=== PATIENT | female | born 1955 | race Caucasian/White ===

== ENCOUNTER 2016-11-19 01:11 | Inpatient (IN) ==
[2016-11-19] MEDS ORDERED: ASPIRIN PO STA (01:16)
[2016-11-19 01:30] LABS: MANUAL DIFF NEEDED? NO
[2016-11-19 01:35] LABS: BASO% 0.2 % (0.0-0.8); EOS# 0.03 X1000 (0.0-0.7); EOS% 0.3 % (0.0-10.0); HEMATOCRIT 43.3 % (37.0-47.0); HEMOGLOBIN 15.3 g/dL (12.0-16.0); IMM GRAN# 0.02 X1000 (0.0-0.04); IMM GRAN% 0.2 % (0.0-0.5); LYMPH# 1.51 X1000 (1.2-3.4); LYMPH% 17.4 % (20.5-51.1); MCH 29.3 PG (27-31); MCHC 35.3 g/dL (33-37); MONO# 0.41 X1000 (0.11-0.59); MONO% 4.7 % (1.7-9.3); MPV 9.6 FL (7.4-10.4); NEUT% 77.2 % (42.2-75.2); PLT 71 X1000 (130-400); RBC 5.22 XMIL (4.2-5.4)
[2016-11-19] MEDS ORDERED: NITROGLYCERIN ONE (01:35)
[2016-11-19] MEDS ORDERED: NITROGLYCERIN SL ONE (01:39)
[2016-11-19] MEDS ORDERED: ZOFRAN IV ONE (01:59)
[2016-11-19 02:03] LABS: AGAP 17; ALBUMIN 4.4 g/dL (3.5-5.0); ALKALINE PHOSPHATASE 87 U/L (32-104); BUN 8 mg/dL (8-22); CALCIUM 9.5 mg/dL (8.8-10.2); CHLORIDE 94 mmol/L (98-107); CK PROFILE 55 U/L (24-173); COSMO 273; GOT 1626 U/L (10-30); GPT 1506 U/L (10-36); MAGNESIUM 1.9 mg/dL (1.5-2.7); POTASSIUM 3.2 mmol/L (3.5-5.1); SODIUM 137 mmol/L (136-145); TCO2 26 mmol/L (25-35); TOTAL BILIRUBIN 2.43 mg/dL (0.20-1.00); TOTAL PROTEIN 7.5 g/dL (6.3-8.3)
[2016-11-19 02:11] LABS: INR 1.6; PROTIME 17.3 Seconds (9.2-11.7); PTT 32.1 Seconds (22.0-36.0)
--- NOTE | 2016-11-19 03:13 | ED EKG INTERP ---
This chart was entered by Sushma Flores Scribe, acting as scribe for William Venegas MD. EKG Interpretation - EKG Time of EKG reading by physician:: 01:11 EKG Read and Signed by:: William Venegas EKG Interpretation (*Must complete 3 of following elements*): Abnormal Rate: 105 Rhythm: sinus tachycardia [place]: normal QRS: normal [place] Interval: normal ST Wave: non-specific ST changes (nonspecific ST abnormality) Attestation - Physician/ ADELE Attestation Patient care was provided by Advanced Practice Provider:: No The physician spent face to face time with patient:: Yes Advanced Practice Provider documentation review:: Supervising physician onsite and consulted in the evaluation and care of this patient. The physician did have a face to face encounter with the patient. This chart was documented by the indicated scribe, (Sushma Flores Scribe) and accurately reflects the services I performed and decisions made by me, William Venegas MD, as attested by the provider's signature.
--- NOTE | 2016-11-19 03:14 | PROVIDER DOCUMENTATION ---
This chart was entered by Sushma Flores Scribe, acting as scribe for William Venegas MD. HPI-Chest Pain - General Chief Complaint: Chest Pain Stated Complaint: "THINK HEART ATTACK", CP/ABD PAIN, PASSED OUT Time Seen by Provider: 11/19/16 02:15 Source: patient Allergies/Adverse Reactions: Patient Allergies Allergy/AdvReac Type Severity Reaction Status Date / Time No Known Allergies Allergy Verified 07/24/12 11:42 Home Medications: Home Medication List Medication Instructions Recorded Confirmed Last Taken Type Estrogens, Conjugated [Premarin] 0.3 mg PO DAILY 07/24/12 12/19/15 12/17/15 09: 00 History Promethazine [Phenergan] 25 mg PO Q6H PRN PRN 07/25/12 12/19/15 07/23/12 History Trazodone [Desyrel] 100 mg PO HS PRN PRN 12/19/15 12/19/15 12/17/15 21:00 History Dicyclomine [Bentyl] 10 mg PO BID #20 capsule 12/21/15 Unknown Rx Polyethylene Glycol 3350 [Miralax] 34 gm PO HS #30 powder, packet 12/21/15 Unknown Rx - History of Present Illness-CP Nature of Presenting Problem: Patient is a 61 year old female who presents in the ED with complaints of chest pain and other symptoms. Patient states she has had intermittent chest pain that radiates to her left shoulder over the last couple of days, and states she has also had abdominal pain/soreness and nausea. She also states she had a syncopal episode last night while walking to the bathroom, and states she hit her face on the ground causing bruising to her right cheek. She reports her blood pressure has also been elevated but reports she does not have a history of hypertension. She also reports history of hysterectomy, colon resection, diverticulosis, tonsillectomy, breast implants, a colonoscopy, and occasional alcohol use. Denies bloody vomit/stool, and any other symptoms. Location: reports: substernal Chest Pain Radiation: reports: shoulders (left) Quality of Pain: reports: aching Severity in ED: moderate Onset/Duration: abrupt, 2 days ago Timing: intermittent, changing over time, getting worse Context/Activities at Onset: reports: none Modifying Factors: improves with: nothing Associated Symptoms: reports: abdominal pain, nausea. denies: vomiting Nitro Today/Relief: no nitro taken today Aspirin Treatment Today: no aspirin today Prior Chest Pain/Cardiac Workup: reports: no prior chest pain, no prior cardiac workup Similar Symptoms Previously?: No Recently Seen Here or By Another Healthcare Provider: No Review of Systems - Adult - REVIEW OF SYSTEMS - ADULT Constitutional: reports: no symptoms reported Eyes: reports: no symptoms reported Ears, Nose, Mouth & Throat: reports: no symptoms reported Cardiovascular: reports: see HPI, chest pain, other (high blood pressure) Respiratory: reports: no symptoms reported Gastrointestinal: reports: see HPI, abdominal pain, nausea. denies: hematemesis , rectal bleeding, vomiting Genitourinary: reports: no symptoms reported Musculoskeletal: reports: no symptoms reported Integumentary: reports: no symptoms reported Neurological: reports: see HPI, syncope Psychiatric: reports: no symptoms reported Endocrine: reports: no symptoms reported Hematologic/Lymphatic: reports: no symptoms reported Allergic/Immunologic: reports: no symptoms reported All Other Systems: Reviewed and Negative Past History - Adult - PAST MEDICAL HISTORY-ADULT Review of Records: reports: Nursing Assessment Review, Medications Reviewed Major Childhood Illnesses: reports: denies history Cardiovascular: reports: denies history Respiratory: reports: denies history Gastrointestinal: reports: diverticulosis Obstetrical/Gynecological: reports: denies history Genitourinary: reports: denies history Musculoskeletal: reports: denies history Neurological: reports: denies history Endocrine/Immune: reports: denies history Other Conditions: reports: denies history - PRIOR SURGERIES/PROCEDURES Surgical/Procedure History: reports: colonoscopy, hysterectomy, tonsillectomy, other (colon resection, breast implants) - IMMUNIZATION STATUS Childhood Immunizations: See Nurse Assessment Flu Vaccine: See Nurse Assessment - FAMILY HISTORY Family History: reviewed, not pertinent - SOCIAL HISTORY Smoking: denies, non-smoker Substance Use: none/never Alcohol Use Frequency: occasionally Living Situation: family Physical Exam-General - PHYSICAL EXAM-ADULT Initial Vital Signs Reviewed: Yes - CONSTITUTIONAL General Appearance: alert, no apparent distress - EYES Eyes: PERRL/EOMI, pink conjunctivae - HEAD, EARS, NOSE, MOUTH & THROAT HENMT: moist mucous membranes, other (ecchymosis to right cheek) - NECK Neck: non-tender, full range of motion, supple, normal inspection - RESPIRATORY Respiratory: chest non-tender, lungs clear, normal breath sounds, no pleuratic chest pain, no respiratory distress, no accessory muscle use - CARDIOVASCULAR Cardiovascular: normal peripheral pulses, regular rate, rhythm, no edema, no gallop, no JVD, no murmur - GASTROINTESTINAL (ABDOMEN) Abdominal Exam: normal bowel sounds, non tender, soft, no organomegaly, no pulsatile mass - LYMPHATIC Lymphatic: no adenopathy - MUSCULOSKELETAL Back Exam: normal inspection, no CVA tenderness, no vertebral tenderness Extremity: normal range of motion, non-tender, normal gait, normal inspection, no pedal edema, no calf tenderness, normal capillary refill, pelvis stable - SKIN Integumentary: normal color, normal turgor, warm/dry, ecchymosis (right wrist) - NEUROLOGIC Neurologic: grossly normal, no motor/sensory deficits - PSYCHIATRIC Psych/Mental Status: normal mood/affect, oriented x 3 Progress - PLAN OF CARE/RESULTS Progress/Plan/Lab Results: Vital Signs - 8 hr 11/19/16 01:26 Temperature 97.9 F Pulse Rate 101 H Respiratory Rate 19 Blood Pressure 131/94 O2 Sat by Pulse Oximetry 98 Laboratory Results - last 24 hr 11/19/16 11/19/16 11/19/16 01:15 01:15 01:15 WBC 8.69 RBC 5.22 Hgb 15.3 Hct 43.3 MCV 83.0 MCH 29.3 MCHC 35.3 RDW Std Deviation 12.9 Plt Count 71 L MPV 9.6 Immature Gran % (Auto) 0.2 Neut % (Auto) 77.2 H Lymph % (Auto) 17.4 L [place] % (Auto) 4.7 Eos % (Auto) 0.3 Baso % (Auto) 0.2 Immature Gran # (Auto) 0.02 Neut # (Auto) 6.70 H Lymph # (Auto) 1.51 [place] # (Auto) 0.41 Eos # (Auto) 0.03 Baso # (Auto) 0.02 PT INR PTT (Actin FS) D-Dimer Sodium 137 Potassium 3.2 L Chloride 94 L Carbon Dioxide 26 Anion Gap 17 BUN 8 Creatinine 0.6 Estimated GFR/1.73 m2 > 60 BUN/Creatinine Ratio 13 Glucose 107 H Calculated Osmolality 273 Calcium 9.5 Magnesium 1.9 Total Bilirubin 2.43 H AST 1626 H ALT 1506 H Alkaline Phosphatase 87 Creatine Kinase 55 Troponin T Mnh-N-Sroxczdtjmj Pept 124 Total Protein 7.5 Albumin 4.4 Globulin 3.1 Albumin/Globulin Ratio 1.4 11/19/16 11/19/16 11/19/16 01:15 01:55 01:55 WBC RBC Hgb Hct MCV MCH MCHC RDW Std Deviation Plt Count MPV Immature Gran % (Auto) Neut % (Auto) Lymph % (Auto) [place] % (Auto) Eos % (Auto) Baso % (Auto) Immature Gran # (Auto) Neut # (Auto) Lymph # (Auto) [place] # (Auto) Eos # (Auto) Baso # (Auto) PT 17.3 H INR 1.60 PTT (Actin FS) 32.1 D-Dimer 11.60 H Sodium Potassium Chloride Carbon Dioxide Anion Gap BUN Creatinine Estimated GFR/1.73 m2 BUN/Creatinine Ratio Glucose Calculated Osmolality Calcium Magnesium Total Bilirubin AST ALT Alkaline Phosphatase Creatine Kinase Troponin T < 0.010 Jec-A-Arxsfcwovea Pept Total Protein Albumin Globulin Albumin/Globulin Ratio Orders Category Date Time Status Cardiac Monitoring DIRECTED Care 11/19/16 01:16 Active Saline Loc NOW Care 11/19/16 01:16 Active CHEST-2 VIEWS [RAD] Stat Exams 11/19/16 01:16 Taken CBC WITH ELECTRONIC DIFF [HEME] Stat Lab 11/19/16 01:15 Completed CK PROFILE [SP CHEM] Stat Lab 11/19/16 01:15 Completed COMPREHENSIVE METABOLIC PANEL [CHEM] Stat Lab 11/19/16 01:15 Completed D-DIMER [CHEM] Stat Lab 11/19/16 01:55 Completed MAGNESIUM [CHEM] Stat Lab 11/19/16 01:15 Completed PRO B-NATRIURETIC PEPTIDE Stat Lab 11/19/16 01:15 Completed PROTIME WITH INR [COAG] Stat Lab 11/19/16 01:55 Completed PTT [COAG] Stat Lab 11/19/16 01:55 Completed TROPONIN T Stat Lab 11/19/16 01:15 Completed Aspirin Med 11/19/16 01:16 Discontinued 325 mg PO STAT STA Nitroglycerin Sl [Nitroglycerin] Med 11/19/16 01:35 Discontinued 0.4 mg .ROUTE .STK-MED ONE Nitroglycerin Sl [Nitroglycerin] Med 11/19/16 01:39 Discontinued 0.4 mg SL NOW ONE Ondansetron [Zofran] Med 11/19/16 01:59 Discontinued 4 mg IV NOW ONE EKG [EKG] Stat Ther 11/19/16 01:16 Ordered Result Diagrams: 11/19/16 01:15 11/19/16 01:15 - CONSULTS/PCP/HOSPITALIST Notification #1 *Consult/PCP/Hospitalist*: Dr Gonsales Time Discussed: 03:14 Consult Disposition: Will see in ED, Admit Departure - Departure Date of Disposition Decision: 11/19/16 Time of Disposition Decision: 02:39 DIAGNOSIS: Hepatitis Disposition: ADMITTED INPATIENT 09 Certified Medical Emergency: Emergent Condition: Stable Referrals and Follow-Ups: Emperatriz Ashley MD [Primary Care Provider] - - Critical Care Note This patient required my direct & personal management of CC.: No Attestation - Physician/ ADELE Attestation Patient care was provided by Advanced Practice Provider:: No The physician spent face to face time with patient:: Yes Advanced Practice Provider documentation review:: Supervising physician onsite and consulted in the evaluation and care of this patient. The physician did have a face to face encounter with the patient. This chart was documented by the indicated scribe, (Sushma Flores Scribe) and accurately reflects the services I performed and decisions made by me, William Venegas MD, as attested by the provider's signature.
[2016-11-19] MEDS ORDERED: NS 1,000 ML IV ONE (03:44)
[2016-11-19] MEDS ORDERED: POTASSIUM CHLORIDE 40 MEQ in NS 250 ML IV ONE (04:00)
[2016-11-19 04:04] LABS: ACETAMINOPHEN 2.4 ug/mL (10-30)
[2016-11-19 04:06] LABS: UR EPITHELIAL CELLS <10 /HPF (<10); URINE BACTERIA NEGATIVE /HPF; URINE CULTURE NEEDED? NO; URINE MICRO REVIEW NEEDED? NO; URINE RBC <10 /HPF (<10); URINE SOURCE CATH; URINE WBC <10 /HPF (<10)
[2016-11-19 04:07] LABS: BILIRUBIN URINE SMALL (NEGATIVE); BLOOD URINE NEGATIVE (NEGATIVE); COLOR YELLOW; GLUCOSE URINE NEGATIVE (NEGATIVE); LEUKOCYTES URINE NEGATIVE (NEGATIVE); NITRITE URINE NEGATIVE (NEGATIVE); PROTEIN URINE TRACE mg/dL (NEGATIVE); SP GRAVITY URINE 1.017; TURBIDITY URINE CLEAR (CLEAR); UROBILINOGEN URINE 4 mg/dL (NORMAL)
[2016-11-19 05:05] LABS: UR AMPHETAMINES QUAL NONE DETECTED (NONE DETECT); UR BARBITUATES QUAL NONE DETECTED (NONE DETECT); UR BENZODIAZEPIN QUAL NONE DETECTED (NONE DETECT); UR CANNABINOIDS QUAL NONE DETECTED (NONE DETECT); UR COCAINE QUAL NONE DETECTED (NONE DETECT); UR METHADONE QUAL NONE DETECTED (NONE DETECT); UR OPIATES QUAL NONE DETECTED (NONE DETECT); UR OXYCODONE QUAL NONE DETECTED (NONE DETECT); UR PCP QUAL NONE DETECTED (NONE DETECT)
[2016-11-19] MEDS ORDERED: DESYREL PO PRN (06:57)
--- NOTE | 2016-11-19 07:31 | HISTORY AND PHYSICAL ---
CHIEF COMPLAINT: Abdominal pain, chest pain. HISTORY OF PRESENT ILLNESS: This is a 61-year-old female, no major medical problems, who has been sick for the last 2 days with nausea, vomiting, anorexia and diarrhea as well. Nonbloody, nonbilious. She came in because she just did not feel well this evening. She was having chest pains as well and she was worried about having a heart attack. Pain is really in her abdomen and radiates up into her chest. Yesterday evening, she had a syncopal episode and she fell and she actually hit the right side of her face and has some bruising there. She is hypertensive or has a history thereof, but is not on any medications for that. She just had labs done with Dr. Ashley. There was some discussion about having a colonoscopy because she has had GI issues before with diverticulitis and perforation. Lab workup, though revealed alarming high levels of AST and ALT, elevated bilirubin, elevated INR consistent with acute hepatic injury/failure secondary to hepatitis, unknown type. She was admitted as such. PAST MEDICAL HISTORY: 1. Diverticulitis with rupture. 2. Depression. PAST SURGICAL HISTORY: 1. Again, she has had the diverticular rupture and repair. 2. Gastric bypass. 3. Reportedly cholecystectomy. 4. Rotator cuff repair. 5. Thumb surgery. ALLERGIES: No known drug allergies. SOCIAL HISTORY: She drinks occasionally. She says it is not every day. No tobacco. ALLERGIES: As described. MEDICATIONS: She is on estrogen, Cymbalta and trazodone. REVIEW OF SYSTEMS: Otherwise negative. Negative x10 systems. She denies any hepatitis history. PHYSICAL EXAMINATION: VITAL SIGNS: Blood pressure 126/92, heart rate 93, respiratory rate 19, temperature 98.4 degrees, 97% on room air. GENERAL: A well-developed female in no acute distress. HEAD: Normocephalic, atraumatic. EYES: Pupils equal, round, reactive to light. Extraocular movements were intact. EAR/NOSE/THROAT: Moist mucous membranes. NECK: Supple. PULMONARY: Bilateral breath sounds. Clear to auscultation. GI: Soft, nontender, nondistended. Bowel sounds are positive. EXTREMITIES: No clubbing or cyanosis. LYMPHATICS: No peripheral edema. NEUROLOGICAL: Nonfocal. SKIN: She did have a small ecchymoses around her right eye. GI: Soft, nontender, nondistended. Bowel sounds are positive. LABORATORY DATA: CBC was intact. INR was 1.6. D-dimer 11.6. Potassium 3.2. T bilirubin 2.4, AST and ALT of 16, 26 and 1506. Troponin negative. Urine unremarkable. UDS, salicylates and acetaminophen were unremarkable. Chest x-ray, I believe, was clear. ASSESSMENT: This is a 61-year-old female with really minimal medical problems presenting with acute hepatitis. 1. Acute hepatitis. Uncertain if this is an iwwgr-dl-xxobuyx process or acute liver injury process. She does not abuse Tylenol or alcohol and those levels were normal. At least the Tylenol level was. There is a possibility she has nonalcoholic steatohepatitis or an underlying disease. We will screen her for multiple chronic liver diseases but also obviously acute hepatitis A and E and follow her numbers and treat symptomatically. We will get a Gastroenterology consult. We will get a right upper quadrant ultrasound. I have ordered JUANITO, anti-smooth muscle body, antimitochondrial antibody, ferritin, and we will follow clinically. 2. Depression. We will continue to monitor. 3. Syncope. Likely related to dehydration, nausea, vomiting and diarrhea. She does have a very elevated D-dimer but then she also has bruising. We will have to go ahead and pursue the CTA even though she is not hypoxic. She was a little tachycardic when she came in, but we will do that just to rule that out and follow closely. We will do serial cardiac enzymes, pursue echocardiogram, further interventions per primary team. cc: MD Jamie Dumas MD
--- NOTE | 2016-11-19 08:04 | Diag Imaging Result Doc PS360 ---
US GB < RUQ (LIMITED) - 11/19/2016 INDICATION: elevated liver enzymes TECHNIQUE: COMPARISON: None FINDINGS: The gallbladder is surgically absent. The liver, pancreas, and right kidney are normal. Common bile duct measures 5 mm. Aorta, IVC, and main portal vein are patent. IMPRESSION: Negative exam. Electronically signed by Mitesh Casillas 11/19/2016 8:01 AM
--- NOTE | 2016-11-19 08:04 | Diag Imaging Result Doc PS360 ---
CT ANGIOGRM/PULMONARY ARTERIES - 11/19/2016 INDICATION: chest pain TECHNIQUE: Axial CT images were obtained after administering intravenous contrast. Coronal MIP images were generated. A CT dose reduction protocol was used. COMPARISON: None FINDINGS: There is no pulmonary embolism. Heart and great vessels are normal. No adenopathy. The lungs are clear. Upper abdominal images are normal. IMPRESSION: Negative exam. Electronically signed by Mitesh Casillas 11/19/2016 8:02 AM
[2016-11-19 08:23] LABS: HEMATOCRIT 39.1 % (37.0-47.0); HEMOGLOBIN 13.8 g/dL (12.0-16.0); MCH 29.5 PG (27-31); MCHC 35.3 g/dL (33-37); MCV 83.5 FL (81-99); MPV 9.5 FL (7.4-10.4); RBC 4.68 XMIL (4.2-5.4)
--- NOTE | 2016-11-19 09:31 | Diag Imaging Result Doc PS360 ---
CHEST-2 VIEWS - 11/19/2016 INDICATION: CP TECHNIQUE: COMPARISON: 11/03/2015 FINDINGS: The lungs are normally expanded and clear. Heart size and mediastinal contours are normal. No pneumothorax or pleural effusion. IMPRESSION: Negative exam. Electronically signed by Mitesh Casillas 11/19/2016 9:28 AM
[2016-11-19] MEDS: CYMBALTA PO SCH (11:04)
[2016-11-19] MEDS: MORPHINE IV PRN ×3 (11:05→23:56)
[2016-11-19] MEDS: PROTONIX IV SCH (11:05)
[2016-11-19 12:43] LABS: AGAP 9; ALKALINE PHOSPHATASE 75 U/L (32-104); BUN 10 mg/dL (8-22); CALCIUM 8.9 mg/dL (8.8-10.2); CHLORIDE 100 mmol/L (98-107); COSMO 274; POTASSIUM 3.6 mmol/L (3.5-5.1); SODIUM 136 mmol/L (136-145); TCO2 27 mmol/L (25-35); TOTAL BILIRUBIN 2.07 mg/dL (0.20-1.00); TOTAL PROTEIN 6.2 g/dL (6.3-8.3)
[2016-11-19 12:56] LABS: GOT 3403 U/L (10-30); GPT 2948 U/L (10-36); LDH 2343 U/L (135-214)
[2016-11-19 18:13] LABS: HEMATOCRIT 38.4 % (37.0-47.0); HEMOGLOBIN 13.4 g/dL (12.0-16.0); INR 1.71; LYMPH# 0.55 X1000 (1.2-3.4); LYMPH% 6.9 % (20.5-51.1); MANUAL DIFF NEEDED? YES; MCH 29.3 PG (27-31); MCHC 34.9 g/dL (33-37); MONO# 0.17 X1000 (0.11-0.59); MONO% 2.1 % (1.7-9.3); MPV 9.6 FL (7.4-10.4); PLT 52 X1000 (130-400); PROTIME 18.6 Seconds (9.2-11.7); RBC 4.57 XMIL (4.2-5.4)
[2016-11-19 18:37] LABS: BANDS 1 % (0-1); LYMPHS 2 % (21-51); MONO 2 % (1-9)
[2016-11-19 18:41] LABS: AGAP 9; ALBUMIN 3.8 g/dL (3.5-5.0); ALKALINE PHOSPHATASE 79 U/L (32-104); BUN 9 mg/dL (8-22); CALCIUM 8.6 mg/dL (8.8-10.2); CHLORIDE 97 mmol/L (98-107); COSMO 270; GOT 6574 U/L (10-30); GPT 5133 U/L (10-36); POTASSIUM 3.6 mmol/L (3.5-5.1); SODIUM 134 mmol/L (136-145); TCO2 28 mmol/L (25-35); TOTAL PROTEIN 6.1 g/dL (6.3-8.3)
[2016-11-19] MEDS: ZOFRAN IV PRN ×2 (19:34→23:56)
--- NOTE | 2016-11-19 20:47 | CONSULTATION ---
DATE OF CONSULTATION: 11/19/2016 REFERRING PHYSICIAN: Malachi Gonsales MD. PRIMARY CARE PROVIDER: Jaswinder Ashley MD. INDICATION FOR CONSULTATION: 1. Abdominal pain. 2. Elevated liver function tests. 3. Nausea with vomiting. 4. Diarrhea. HISTORY OF PRESENT ILLNESS: The patient is a 61-year-old white female with essentially no medical problems. She developed nausea with vomiting, anorexia and diarrhea approximately 2 days prior to admission. On the day of admission, she stood up to go to the restroom and when she awakened she had fallen on the floor and had a contusion with bruising on her right face and right side. She is uncertain as to how long she was there. She has a history of hypertension in the past but is currently not taking any medications. She has had issues with diverticulitis complicated by bowel perforation in the past but has not had a colonoscopy. In the emergency room, she was noted to have markedly elevated AST, ALT, bilirubin and INR consistent with acute liver injury. We are asked to participate in her care. PAST MEDICAL HISTORY: 1. Diverticulitis complicated by perforation with rupture. 2. Depression. 3. Postmenopausal state. 4. Remote hypertension. PAST SURGICAL HISTORY: 1. Exploratory laparoscopy to repair the diverticular rupture. 2. Cholecystectomy. 3. Rotator cuff repair. 4. Thumb surgery. MEDICATION ALLERGIES: None. HOME MEDICATIONS: 1. Desyrel or trazodone. 2. Cymbalta. 3. Premarin. SOCIAL HISTORY: Negative for tobacco and recreational drug use. She reports occasional alcohol ingestion. 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 Today, she reports diffuse abdominal tenderness is greatest in the right upper quadrant, sweating and muscle aches. She notes that her right face is sore from the bruising. FAMILY HISTORY: Noncontributory. PHYSICAL EXAM: General: She is in no acute distress. Vital signs: Her blood pressure is 125/73, pulse 93, respiration 18, temperature of 98.1 degrees. HEENT: Is remarkable for a bruise over the right side of the face. Her sclerae are anicteric. Her conjunctivae are pale. Her oropharyngeal mucosal membranes moist. Pulmonary: Lungs are clear to auscultation with normal respiratory effort. Cardiovascular: Reveals regular rate and rhythm with no gallops, murmurs, or rubs. Abdomen: Reveals normoactive bowel sounds. The abdomen is soft with moderate diffuse tenderness that is greatest in the right upper quadrant. Extremities: Bilaterally are negative for cyanosis, clubbing, or edema. Neurologic: There is no evidence of asterixis. OBJECTIVE DATA: Reveals a hemoglobin of 13.8 with hematocrit of 39.1 and a white count of 7.85 and 69,000 platelets at 8:06 this morning. At 1750 the hemoglobin is 13.4 with hematocrit of 38.4 and a white count of 7.95. She has 52,000 platelets. This morning her PT was 17.3 with an INR of 1.60 and a PTT of 32.1. At 1750 her PT is 18.6 with an INR of 1.7 and a PTT of 31.0. Serum chemistries at 1750 reveal a sodium 134, potassium 3.6, chloride 97, CO2 of 28 , BUN 9, creatinine 0.6 with a glucose of 154. Calcium is 8.6, total bilirubin 2.3, AST 6574, ALT 5133, alkaline phosphatase 79, ammonia 88, CRP 34.78, total protein 6.1, albumin 3.8 and CK of 87. Her troponins are less than 0.010. Urinalysis reveals pH of 6.0 with a specific gravity 1.01 , trace protein, 60 ketones, small bilirubin, urobilinogen that is abnormal but there are less than 10 white blood cells or red blood cells. Toxicology results remarkable for salicylate level less than 3, acetaminophen of 2.4 but otherwise negative urine tox drug screen. IMPRESSION: 1. Syncope. 2. Acute liver injury, likely ischemic. 3. Nausea with vomiting. 4. Diarrhea. 5. Abdominal pain. RECOMMENDATION: 1. Given the patient's history of a viral syndrome immediately prior to admission followed by a syncopal episode, the rapid rise in her liver function tests likely represents acute ischemia secondary to hypotension. I would recommend conservative monitoring. If her liver function tests continue to rise, she may need further evaluation at [facility]. Currently, her MELD score is 14 but she is clinically stable with no evidence of encephalopathy. At this time, I would continue conservative management unless there is decompensation. 2. She had an abdominal ultrasound today, which was essentially unremarkable. However, given her progression of her liver function tests, I will order a CT scan of the abdomen and pelvis for further evaluation. 3. It should be noted that her CT angio was negative for pulmonary embolus. Her lungs appear clear and her upper vessels were normal. It is unlikely that she has had an emboli to her liver but it is prudent to monitor. 4. I agree with Protonix 40 mg IV q.24 hours. 5. Although the patient has right upper quadrant pain, I am extremely reluctant to administer additional narcotic therapy pending further evaluation. 6. I agree with the acute viral hepatitis panel that has been ordered and is pending. 7. Will continue to monitor the patient's labs. I recommend liver function tests every 6-8 hours with a low threshold of transferring to [facility] should her INR exceed 2.0 or her liver function test exceeds 8000-10,000. 8. Will continue to follow along with you. cc: MD Jamie Dumas MD MTDD
--- NOTE | 2016-11-19 21:55 | Diag Imaging Result Doc PS360 ---
CT ABD/PELVIS W/PO AND IV CON - 11/19/2016 INDICATION: acute liver failure TECHNIQUE: A CT dose reduction protocol was used. COMPARISON: 12/18/2015 FINDINGS: Stable cholecystectomy clips. There is heterogeneous hypoenhancement of the liver. The splenic vein, superior mesenteric vein, main portal vein, and major hepatic veins are patent. No focal liver masses. There are some nonspecific edema at the liver hilum extending into the right anterior pararenal space. There is trace pelvic free fluid. Other solid abdominal organs are normal. There is moderate constipation. No bowel obstruction or inflammation. Normal appendix. Vascular structures are patent. There are moderate degenerative changes of the spine. No acute or suspicious bony lesion. IMPRESSION: 1. Diffuse nonspecific heterogeneous hypoenhancement of the liver. This could represent fatty change or other hepatocellular dysfunction such as hepatitis. 2. Constipation. Electronically signed by iMtesh Casillas 11/19/2016 9:52 PM
--- NOTE | 2016-11-19 22:04 | ECHO REPORT ---
ORDER DATE: 11/19/2016 DIAGNOSES: 1. Syncope. 2. Abdominal pain. 3. Nausea and vomiting. MEASUREMENTS: Left ventricular end-diastolic diameter 3.1, systolic diameter 2.1, septal thickness 1.0, posterior wall thickness 1.1, left atrium 3.0, aortic root 2.7. SUMMARY: 1. Technically difficult study due to limited acoustic window quality. 2. Aortic, mitral and tricuspid valves are without structural abnormality while pulmonic valve is not well demonstrated. There is mild tricuspid regurgitation. The estimated systolic PA pressure by Doppler is 30 mmHg. Aortic root is normal size. 3. Normal left ventricular dimension suggested. Estimated left ejection fraction appears to be at least 65%. No regional wall motion abnormalities can be appreciated. Doppler suggests grade 1 left ventricular diastolic dysfunction. Left atrium, right atrium, and right ventricle are normal in size with normal right ventricular systolic function. 4. No pericardial effusion. 5. Appearance of inferior vena cava suggests normal central venous pressure. CONCLUSIONS: 1. Technically difficult study. 2. Mild tricuspid regurgitation with estimated systolic PA pressure 30 mmHg. 3. Normal left ventricular ejection fraction without wall motion abnormality evident. 4. Grade 1 left ventricular diastolic dysfunction. cc: MD Gilles Benjamin MD Jagan Reddy, MD
[2016-11-20] MEDS: ZOFRAN IV PRN ×4 (04:48→21:47)
[2016-11-20] MEDS: MORPHINE IV PRN ×4 (04:48→21:47)
[2016-11-20] MEDS: PROTONIX IV SCH (06:45)
[2016-11-20] MEDS: SODIUM CHLORIDE 0.9% INJ SCH ×2 (06:45→09:19)
[2016-11-20 07:02] LABS: BASO% 0.1 % (0.0-0.8); EOS# 0.02 X1000 (0.0-0.7); EOS% 0.3 % (0.0-10.0); HEMATOCRIT 42.6 % (37.0-47.0); HEMOGLOBIN 14.7 g/dL (12.0-16.0); IMM GRAN# 0.02 X1000 (0.0-0.04); IMM GRAN% 0.3 % (0.0-0.5); LYMPH# 0.65 X1000 (1.2-3.4); LYMPH% 8.6 % (20.5-51.1); MANUAL DIFF NEEDED? YES; MCH 28.9 PG (27-31); MCHC 34.5 g/dL (33-37); MCV 83.9 FL (81-99); MONO# 0.24 X1000 (0.11-0.59); MONO% 3.2 % (1.7-9.3); MPV 10.1 FL (7.4-10.4); NEUT% 87.5 % (42.2-75.2); PLT 52 X1000 (130-400); RBC 5.08 XMIL (4.2-5.4)
[2016-11-20 07:04] LABS: INR 1.71; PROTIME 18.6 Seconds (9.2-11.7)
[2016-11-20 07:15] LABS: LYMPHS 10 % (21-51); MONO 2 % (1-9)
[2016-11-20 07:22] LABS: AGAP 12; ALBUMIN 3.9 g/dL (3.5-5.0); ALKALINE PHOSPHATASE 100 U/L (32-104); BUN 10 mg/dL (8-22); CALCIUM 8.3 mg/dL (8.8-10.2); CHLORIDE 96 mmol/L (98-107); COSMO 269; POTASSIUM 3.7 mmol/L (3.5-5.1); SODIUM 135 mmol/L (136-145); TCO2 27 mmol/L (25-35); TOTAL BILIRUBIN 3.05 mg/dL (0.20-1.00); TOTAL PROTEIN 6.4 g/dL (6.3-8.3)
[2016-11-20 07:42] LABS: GOT > 7000 U/L (10-30); GPT > 7000 U/L (10-36)
[2016-11-20] MEDS: CYMBALTA PO SCH (09:18)
--- NOTE | 2016-11-20 12:42 | PROGRESS NOTE ---
DATE: 11/20/2016 SUBJECTIVE: The patient says she feels a little bit better. Her daughter is in the room with her and we talked. OBJECTIVE: Vital signs: Blood pressure is 133/84, respirations 18, pulse 104, temperature 97.6 degrees Fahrenheit, oxygen saturation is 98% on room air. HEENT: She has a little bruising on her face for where she had her fall. Neck: Supple without thyromegaly, lymphadenopathy, or carotid bruits. Lungs: Clear to auscultation and percussion without rhonchi, rales, or wheezes. Heart: Regular rate and rhythm without murmurs, gallops, or friction rubs. Sinus tachycardia. Abdomen: Soft. Active bowel sounds. Maybe a little mild tenderness in the right upper quadrant. Neurological: Intact grossly. LABORATORY: White count 7,590, hemoglobin is 14.7. Protime is 18.6, INR 1.71. Her sodium is 135, potassium 3.7, BUN 10, creatinine 0.7. Total bilirubin has gone from 2.3 to 3.05. AST has gone up over 7,000. ALT to over 7,000. So liver enzymes have continued to go up. C. reactive protein was 34.78 yesterday and is 59.98 today. ASSESSMENT: 1. Acute hepatitis, unknown origin. 2. Syncope. It should be noted that I had a talk with the daughter and I asked the patient if she was drinking any alcohol and she said only occasionally. Daughter interrupted and told her mother that she needed to be honest with the doctors and that apparently at one time she drank very heavy, though she would never tell me how heavy. The daughter said certainly heavier than average. The patient says she is drinking about 1 beer a day now and had not had a drink in 3 or 4 days. Her syncopal episode, however, did not sound like a seizure from the way she described it, in that she passed out suddenly, woke up quickly, and did not have a postictal state or any shaking behavior; just did not sound like a seizure at the time. She had been having diarrhea and throwing up and could have had some dehydration with this or maybe a Robert-Joshi attack. Liver function tests have continued to go up. I have discussed this with Dr. Tobin, research food technologist who is following and wants to watch this at this time. As I do not know her previous history it is hard to know whether she might have had some underlying cirrhosis from her alcohol and that she was a heavy drinker for many years apparently or at least heavy according to her daughter, though the patient denies being a heavy drinker. Some of this is unclear. PLAN: We will continue to watch. Dr. Tobin will address liver issues. cc: MD Jamie Rhodes Jr, MD
[2016-11-20 18:45] LABS: INR 1.56; PROTIME 16.8 Seconds (9.2-11.7)
[2016-11-20 19:15] LABS: ALBUMIN 3.9 g/dL (3.5-5.0); DIRECT BILIRUBIN 2.4 mg/dL (0.00-0.20); TOTAL BILIRUBIN 3.36 mg/dL (0.20-1.00); TOTAL PROTEIN 5.7 g/dL (6.3-8.3)
--- NOTE | 2016-11-20 23:47 | PROGRESS NOTE ---
DATE: 11/20/2016 SUBJECTIVE: The patient states that she is feeling significantly better. Her daughter is at bedside and admits that the patient drinks beer on a near daily basis. The patient admits that she had in the past drank approximately 12 beers per day on a regular basis. She reports reducing her intake to 1-2 beers a day with pizza and meals over the last year. Her last drink was approximately 3 days prior to the hospitalization. The daughter is concerned that her liver enzymes may be elevated secondary to alcohol intake. They are both awaiting her test results. OBJECTIVE: Vital signs: On exam, her blood pressure is 133/84, pulse of 104, respiration 18, temperature of 97.6 degrees. HEENT: Remarkable for resolving ecchymoses secondary to bruising over the right face. Pulmonary: Lungs are clear to auscultation with normal respiratory effort. Cardiovascular: Reveals a resting tachycardia with no murmurs, gallops, or rubs. Abdomen: Reveals diffuse abdominal tenderness that is greatest in the right upper quadrant. OBJECTIVE DATA: Reveals a hemoglobin of 14.7 with hematocrit of 42.6 and a white count of 7.59 with 52,000 platelets at 0630 this morning. Her PT is 18.6 with an INR of 1.71. Sodium is 135, potassium 3.7, chloride 96, CO2 27, BUN 10, creatinine 0.7 with a glucose of 93. Calcium is 8.3, total bilirubin 3.05, AST greater than 7000, ALT greater than 7000, alkaline phosphatase of 100, ammonia 37, CRP 5998, total protein 6.4 and albumin 3.9. Repeat labs at 1810 are remarkable for a PT of 16.8 with an INR of 1.56. She has a total bilirubin of 3.36, direct bilirubin 2.40, AST 4264, ALT 6116, alkaline phosphatase 97, CRP 8404, total protein 5.7 and albumin 3.9. RECOMMENDATION: 1. From a liver standpoint, the patient's liver function enzymes are showing evidence of improvement. Therefore, I would continue conservative management. Because of her improvement, I will defer on an evaluation at [facility]. 2. Await the results of the pending hepatitis evaluation. 3. Continue Protonix 40 mg but increase to q.12 hours. 4. Depending on the degree of resolution it may be prudent to consider liver biopsy. 5. Additional recommendations to follow based on her clinical course. cc: MD Jamie Herrera MD MTD[facility]
[2016-11-21] MEDS: MORPHINE IV PRN ×3 (03:42→15:30)
--- NOTE | 2016-11-21 06:09 | EKG Report ---
Test Performed on : 11/19/2016 01:11:28 AM Test Reason : Chest Pain Blood Pressure : / mmHG Vent. Rate : 105 BPM Atrial Rate : 105 BPM P-R Int : 126 ms QRS Dur : 086 ms QT Int : 346 ms P-R-T Axes : 069 060 074 degrees QTc Int : 457 ms Sinus tachycardia. Nonspecific ST abnormality Abnormal ECG No previous ECGs available Unconfirmed Result
[2016-11-21] MEDS: SODIUM CHLORIDE 0.9% INJ SCH ×2 (06:21→15:30)
[2016-11-21] MEDS: PROTONIX IV SCH (06:21)
[2016-11-21 07:18] LABS: HEMATOCRIT 37.1 % (37.0-47.0); HEMOGLOBIN 12.9 g/dL (12.0-16.0); MCH 29.7 PG (27-31); MCHC 34.8 g/dL (33-37); MCV 85.3 FL (81-99); RBC 4.35 XMIL (4.2-5.4)
[2016-11-21 07:41] LABS: AGAP 10; ALBUMIN 3.7 g/dL (3.5-5.0); ALKALINE PHOSPHATASE 98 U/L (32-104); BUN 6 mg/dL (8-22); CHLORIDE 97 mmol/L (98-107); COSMO 269; GOT 1877 U/L (10-30); GPT 4540 U/L (10-36); POTASSIUM 3.3 mmol/L (3.5-5.1); SODIUM 136 mmol/L (136-145); TCO2 29 mmol/L (25-35); TOTAL BILIRUBIN 3.56 mg/dL (0.20-1.00); TOTAL PROTEIN 6.1 g/dL (6.3-8.3)
[2016-11-21] MEDS ORDERED: VITAMIN K 10 MG in NS 50 ML IV ONE (08:32)
--- NOTE | 2016-11-21 10:19 | Diag Imaging Result Doc PS360 ---
EXAM: CT FACIAL BONES W/WO CONTRAST - 11/21/2016 HISTORY: injury right side TECHNIQUE: CT facial bones without and with contrast. Dose reduction protocol. COMPARISON: None. FINDINGS: There is no fracture identified. There is no fluid identified in the paranasal sinuses. There is deviation of the nasal septum to the left consistent with long-standing change. There is no retrobulbar or orbital hematoma identified. The globes of the orbits appear grossly intact. There is ill-defined subcutaneous soft tissue swelling at the right face. There is a 0.6 m hyperdense area within the swollen area which may represent engorged blood vessels or small hematoma. There is no enhancing lesion identified. There is no abscess identified. IMPRESSION: Subcutaneous soft tissue swelling at right face. No evidence of fracture. Electronically signed by Adolfo Rockwell 11/21/2016 10:17 AM
[2016-11-21 11:44] LABS: HEPATITIS PROFILE ACUTE SEE COMMENTS
[2016-11-21] MEDS: ZOFRAN IV PRN (15:30)
--- NOTE | 2016-11-21 18:52 | PROGRESS NOTE ---
DATE: 11/21/2016 INTERVAL HISTORY: Reviewed detailed report. The patient was seen in my office in May 2016. She had the labs done on 11/15/2016 and was supposed to come for physical. She came to the emergency room after she passed out with injury to the right side of the face with a bruise noted. PAST MEDICAL HISTORY, PAST SURGICAL HISTORY, MEDICATIONS: Reviewed. CONSULTATION: Appreciated by Dr. Naya Tobin. REVIEW OF SYSTEMS: HEENT: Pain and swelling to the right face and no focal symptoms. Cardiopulmonary: No chest pain. No shortness of breath. No swelling of feet. Gastrointestinal: Right upper quadrant pain. No altered bowel habits. No bleeding per rectum. Genitourinary: No history of hesitancy, frequency or dysuria. PHYSICAL EXAMINATION: Vital Signs: She is afebrile. Hemodynamics were stable. HEENT Examination: Right-sided bruise noted. Pupils equal and reactive to light. Neck: Supple. Chest: Bilateral air entry. Heart: Sounds are regular. No murmur. Abdomen: Belly is soft, nontender. Good bowel sounds. No masses palpable. Extremities: No peripheral edema, cyanosis. Neurologic: No obvious neurological deficits. INVESTIGATIONS: CBC: White cell count 5.2, hematocrit 37, platelets 62,000. PT 16. INR 1.5. SMA 7. Sodium 136, potassium 3.3, chloride 97. Bilirubin is high. LFTs were coming down. Total protein 6.1. Urine toxic screen was negative. Plasma alcohol negative. JUANITO negative. Antismooth muscle antibody is negative. Hepatitis panel negative for A, B and C plasma. Tylenol and salicylates were normal. Hepatitis surface antibody was positive. ASSESSMENT AND PLAN: 1. Syncope. Etiology to be determined. Rule out cardiac. EKG: Sinus tachycardia, nothing acute. Chest x-ray was negative. 2. Positive D-dimer. CT pulmonary angiogram is negative. 3. Chest pain. Normal LV systolic function without any abnormalities. Ejection fraction 65%. 4. Hepatitis acute. Rule out drug-induced, rule out viral hepatitis, could be ischemic. Getting better. 2 days ago LFTs normal, normal platelets. 5. Thrombocytopenia. Stable. 6. History of right-sided facial injury. CT of the facial bone is negative for acute bony injury. 7. Acute hepatitis: CT of the abdomen and pelvis is negative. 8. Fatty liver and constipation. Slowly advance the diet. Discussed with the patient, as well as jose l in [place] on the phone. LEVEL OF DOCUMENTATION: 35 minutes. cc: Jamie Ashley MD
--- NOTE | 2016-11-21 20:43 | PROGRESS NOTE ---
DATE: 11/21/2016 SUBJECTIVE: The patient states she is feeling considerably better. She is anxious to go home. Her liver tests have improved but remain greater than 1000. On exam, there has been no interval change from her exam over the weekend. RECOMMENDATION: 1. I would continue to monitor her clinical course. When her liver function tests are less than 1000, it is reasonable to consider outpatient management. 2. Her hepatitis profile is negative as are her markers for autoimmune liver disease suggesting that the acute bump in her liver function test is related to ischemia as a consequence of her viral syndrome. 3. She does have a history of alcohol intake as well as fatty liver. I will plan outpatient evaluation of these 2 concerns. 4. The patient reports that her constipation is better with a bowel program. I will continue this as outpatient. 5. She will need outpatient endoscopy once she recovers. 6. Additional recommendations to follow based on her clinical course. cc: MD Jamie Reardon MD MTDD
[2016-11-22] MEDS: PROTONIX IV SCH (06:51)
[2016-11-22] MEDS: ZOFRAN IV PRN (06:51)
[2016-11-22 07:19] LABS: HEMOGLOBIN 12.2 g/dL (12.0-16.0); MCH 29.5 PG (27-31); MCHC 33.9 g/dL (33-37); MCV 87.2 FL (81-99); MPV 9.9 FL (7.4-10.4); RBC 4.13 XMIL (4.2-5.4)
[2016-11-22 07:55] LABS: AGAP 11; ALBUMIN 3.6 g/dL (3.5-5.0); ALKALINE PHOSPHATASE 98 U/L (32-104); BUN 6 mg/dL (8-22); CALCIUM 8.7 mg/dL (8.8-10.2); CHLORIDE 97 mmol/L (98-107); COSMO 271; GOT 524 U/L (10-30); GPT 2624 U/L (10-36); POTASSIUM 3.6 mmol/L (3.5-5.1); SODIUM 137 mmol/L (136-145); TCO2 29 mmol/L (25-35); TOTAL BILIRUBIN 1.82 mg/dL (0.20-1.00); TOTAL PROTEIN 6.2 g/dL (6.3-8.3)
[2016-11-22 13:02] LABS: HEPATITIS E IGM AB SEE COMMENTS
[2016-11-22 13:03] LABS: PTT 26.5 Seconds (22.0-36.0)
[2016-11-22 13:07] LABS: INR 0.99; PROTIME 10.4 Seconds (9.2-11.7)
[2016-11-22] MEDS ORDERED: MIRALAX PO ONE (17:53)
[2016-11-22] MEDS ORDERED: MONISTAT-7 VAG CREAM VAG ONE (18:20)
--- NOTE | 2016-11-22 18:38 | PROGRESS NOTE ---
DATE: 11/22/2016 SUBJECTIVE: The patient is doing very well. Complains of yeast infection in vagina, constipation. REVIEW OF SYSTEMS: None reported. PHYSICAL EXAMINATION: Vital signs: Hemodynamics were stable. HEENT Examination: Within normal limits. Decreased jaundice. Bruising on the right side of the face noted. Chest: Clear. Heart: Sounds regular. Abdomen: Belly is soft, nontender. Good bowel sounds. Extremities: No peripheral edema or cyanosis. Neurologic: No obvious neurological deficits. LABORATORIES: CBC: White cell count 4.5, hematocrit 36, platelets 117,000. PT/INR is normal. SMA 7 is normal. Bilirubin 1.8. AST and ALT are coming down. Antismooth muscle antibody was negative. ASSESSMENT AND PLAN: 1. Acute hepatitis getting better and follow up . 2. Constipation. MiraLAX. 3. Yeast vaginitis. Vaginal cream. 4. We will follow up. LEVEL OF DOCUMENTATION: 25 minutes. cc: Jamie Ashley MD
[2016-11-22] MEDS ORDERED: GYNE-LOTRIMIN VAGINAL CREAM VAG SCH (21:00)
[2016-11-22] MEDS ORDERED: MONISTAT-7 VAG CREAM VAG SCH (21:00)
--- NOTE | 2016-11-23 02:59 | PROGRESS NOTE ---
DATE: 11/22/2016 SUBJECTIVE: The patient states that she is feeling significantly better today. Her liver enzymes continue to improve, but remain over 1000. Her acute viral hepatitis studies and autoimmune liver marker studies have returned and are negative. The patient feels strongly that she would like to have a liver biopsy to determine the cause of her abnormal liver function tests prior to discharge. With the addition of MiraLAX, her constipation has improved considerably. She feels that she has a vaginal yeast infection and would like to discuss this with Dr. Ashley. RECOMMENDATION: 1. I will check a PT and an INR today. 2. I will also check her ammonia. 3. If these are within normal limits, I will place the patient on the schedule for an ultrasound-guided liver biopsy in the morning. 4. The above testing should not preclude her from going home in the next 1-2 days. 5. I will schedule an outpatient EGD and colonoscopy once she returns to clinic. 6. Clinic 2-3 weeks after hospital discharge. cc: MD Jamie Herrera MD MTDD
[2016-11-23] MEDS: SODIUM CHLORIDE 0.9% INJ SCH (06:05)
[2016-11-23] MEDS: PROTONIX IV SCH (06:05)
[2016-11-23 07:03] LABS: INR 0.97; PROTIME 10.2 Seconds (9.2-11.7)
[2016-11-23 07:25] LABS: AGAP 12; ALBUMIN 3.8 g/dL (3.5-5.0); ALKALINE PHOSPHATASE 99 U/L (32-104); BUN 8 mg/dL (8-22); CALCIUM 8.4 mg/dL (8.8-10.2); CHLORIDE 102 mmol/L (98-107); COSMO 282; GOT 272 U/L (10-30); POTASSIUM 3.8 mmol/L (3.5-5.1); SODIUM 142 mmol/L (136-145); TCO2 28 mmol/L (25-35); TOTAL PROTEIN 6.6 g/dL (6.3-8.3)
[2016-11-23 07:38] LABS: GPT 1866 U/L (10-36)
[2016-11-23] MEDS ORDERED: MIRALAX PO SCH (09:00)
[2016-11-23] MEDS: MORPHINE IV PRN ×2 (09:30→13:15)
--- NOTE | 2016-11-23 12:09 | Diag Imaging Result Doc PS360 ---
US LIVER BIOPSY W S/I - 11/23/2016 INDICATION: abnormal liver tests, fatty liver, ETOH, ischemia TECHNIQUE: The risks and benefits of the procedure were discussed with the patient. All questions were answered. Written and verbal informed consent was obtained. Overlying skin was prepped and draped in sterile fashion. Anesthesia was achieved with injection of 10 cc of 1% lidocaine. COMPARISON: CT from 11/19/2016 FINDINGS: The 9 cm 18-gauge [employer] biopsy needle was used. Four biopsy specimens were obtained from the anterior left lobe of the liver. The patient reported no symptoms from the procedure. IMPRESSION: Successful and uncomplicated ultrasound-guided liver biopsy. Electronically signed by Mitesh Casillas 11/23/2016 12:07 PM
[2016-11-23 16:21] VITALS: BP 125/65
--- NOTE | 2016-11-25 17:34 | DISCHARGE SUMMARY ---
ADMISSION DATE: 11/19/2016 DISCHARGE DATE: 11/23/2016 DISCHARGING DIAGNOSES: 1. Near syncope, etiology to be determined. 2. Right facial injury due to contusion. CT of the facial bones no acute bony injury. 3. Acute hepatitis. Questionable etiology. All the workup was negative. 4. Postmenopausal. 5. Fibromyalgia. OTHER PROBLEMS: 1. Breast implants. 2. Partial colectomy. 3. Cholecystectomy. 4. Hysterectomy. CONSULT: Dr. Naya Tobin. PROCEDURES: Liver biopsy, results are pending. BRIEF HISTORY: Please see the history and physical that was done by hospitalist , Dr. Gonsales. In brief, she is a 61-year-old white female, who was seen in my office in May 2016. She has a physical that was supposed to be done 2 days before the hospitalization. She has a normal CBC and liver function tests. According to the the patient was going out of the kitchen, suddenly heard a big noise and she had a syncope and landed on the floor with injury to the right side of the face. She immediately woke up and basically transferred to the hospital. HOSPITAL COURSE: As follows: 1. In the emergency room patient has a right-sided facial contusion. Initial CT head was negative. 2. Positive D-dimer 11.1. CT pulmonary angiogram is negative for PE. 3. She has acute elevation of liver function tests, around 8000, as well as bilirubin associated with coagulopathy and slightly increased ammonia level. GI consult was obtained by Naya Tobin. Initial differential diagnosis drugs, toxins, viral, ischemic. However patient has normal hemodynamics. The patient was ruled out for acute viral hepatitis which includes A, B and C. She was given vitamin K, IV fluids, and slowly advanced the diet. At this time etiology was not clear. Patient has a normal salicylate level, normal Tylenol level. No alcohol noted. She is basically taking trazodone, duloxetine, and estradiol , and none of the medicines were changed. Nevertheless, patient is slowly getting better, and at the time of discharge, patient is stable and the labs as follows. LABS: CBC: White cell count 4.5, hematocrit 36, platelets 170,000, PT 10, INR 0.9. SMA 7: Sodium 142, potassium 3.8, chloride 102, BUN 8, creatinine 0.7. Calcium 8.4. Bilirubin 1.5. AST 272, ALT 1866, alkaline phosphate 99. Total protein is normal. Skinny antitrypsin is negative. Ceruloplasmin is negative. Urine toxicology screen is negative. JUANITO anti smooth muscle antibody, antimitochondrial antibody is negative. Hepatitis A, B, C, hepatitis E were negative. RADIOLOGY REPORTS: CT facial bones negative for acute bony injury. CT scan of the abdomen and pelvis, fatty liver, constipation. CT pulmonary angiogram negative. No PE. No adenopathy. Echocardiography with Doppler: Technically difficult study. Normal LV cavity size and LV systolic function. Abdominal ultrasound negative exam, gallbladder was absent. Chest x-ray: Negative exam. EKG: Normal sinus, nothing acute. DISCHARGE INSTRUCTIONS: As follows: Hold the Premarin. Trazodone 100 at bedtime. Cymbalta 60 daily. Follow up in my office in the next week. Repeat CBC, liver function tests, PT/INR. Also will do outpatient chemical stress test. cc: MD Jamie Herrera MD MTDD
== END 2016-11-23 20:00 | disposition home or self-care (01) ==
LOC: ED 01:11 → SUATTDRO 04:57 → 3N 04:57
PROVIDERS: ADMIT Internal Medicine; ATTEND Internal Medicine

== ENCOUNTER 2018-04-26 09:18 | Inpatient (IN) ==
[2018-04-26] MEDS ORDERED: DUONEB (A & A) INH ONE (09:47)
--- NOTE | 2018-04-26 10:30 | Diag Imaging Result Doc PS360 ---
EXAM: CHEST-2 VIEWS 04/26/2018 HISTORY: productive cough, reported fever TECHNIQUE: PA and lateral chest COMMENT: There is platelike atelectasis in the right base which is worse than on 04/24/2018. IMPRESSION: Atelectasis versus pneumonia right lower lobe. Electronically signed by Klever Barton 04/26/2018 10:27 AM
[2018-04-26 10:52] LABS: URINE SOURCE CLEAN CATCH
[2018-04-26 10:56] LABS: BASO# 0.02 X1000 (0.0-0.2); BASO% 0.3 % (0.0-0.8); EOS# 0.05 X1000 (0.0-0.7); EOS% 0.8 % (0.0-10.0); HEMOGLOBIN 12.1 g/dL (12.0-16.0); LYMPH# 0.68 X1000 (1.2-3.4); LYMPH% 10.6 % (20.5-51.1); MCH 28.3 PG (27-31); MCHC 32.7 g/dL (33-37); MCV 86.7 FL (81-99); MONO# 0.58 X1000 (0.11-0.59); MPV 9.7 FL (7.4-10.4); NEUT# 5.08 X1000 (1.4-6.5); NEUT% 79.3 % (42.2-75.2); PLT 222 X1000 (130-400); RBC 4.27 XMIL (4.2-5.4); RDW 14.8 % (11.5-14.5); WBC 6.41 X1000 (4.8-10.8)
[2018-04-26 11:08] LABS: BILIRUBIN URINE NEGATIVE (NEGATIVE); BLOOD URINE NEGATIVE (NEGATIVE); COLOR YELLOW; GLUCOSE URINE NEGATIVE (NEGATIVE); KETONE URINE NEGATIVE (NEGATIVE); LEUKOCYTES URINE NEGATIVE (NEGATIVE); NITRITE URINE NEGATIVE (NEGATIVE); PH URINE 7.5; PROTEIN URINE NEGATIVE (NEGATIVE); TURBIDITY URINE CLEAR (CLEAR); UROBILINOGEN URINE NORMAL (NORMAL)
[2018-04-26 11:09] LABS: UR EPITHELIAL CELLS <10 /HPF (<10); URINE BACTERIA NEGATIVE /HPF; URINE RBC <10 /HPF (<10); URINE WBC <10 /HPF (<10)
[2018-04-26 11:27] LABS: AGAP 14; ALB/GLOB RATIO 1.5; ALBUMIN 4.2 g/dL (3.5-5.0); ALKALINE PHOSPHATASE 55 U/L (32-104); BUN 9 mg/dL (8-22); CALCIUM 8.7 mg/dL (8.8-10.2); CHLORIDE 98 mmol/L (98-107); COSMO 273; CREATININE 0.7 mg/dL (0.5-0.9); ESTIMATED GFR > 60; GLUCOSE 132 mg/dL (70-104); GOT 19 U/L (10-30); GPT 10 U/L (10-36); POTASSIUM 3.3 mmol/L (3.5-5.1); SODIUM 136 mmol/L (136-145); TCO2 24 mmol/L (25-35); TOTAL BILIRUBIN < 0.15 mg/dL (0.20-1.00)
[2018-04-26] MEDS ORDERED: ZOSYN 3.375 GM in NS 50 ML IV ONE (12:11)
[2018-04-26] MEDS ORDERED: NS 1,000 ML IV ONE (12:11)
[2018-04-26] MEDS ORDERED: TAMIFLU PO ONE (12:14)
--- NOTE | 2018-04-26 12:17 | PROVIDER DOCUMENTATION ---
This chart was entered by Karolina Duggan Scribe, acting as scribe for Viji Cee CRNP. HPI-General Adult - General Chief Complaint: Flu Symptoms Stated Complaint: CP/CRUD/CONGESTION/HEADACHE Time Seen by Provider: 04/26/18 09:37 Source: patient Allergies/Adverse Reactions: Patient Allergies Allergy/AdvReac Type Severity Reaction Status Date / Time No Known Allergies Allergy Verified 07/06/17 10:22 Home Medications: Home Medication List Medication Instructions Recorded Confirmed Last Taken Type Duloxetine HCl 60 mg PO DAILY 03/20/17 03/20/17 Unknown History Lisinopril 20 mg PO DAILY #30 tab 03/20/17 Unknown Rx Trazodone HCl 150 mg PO QHS 03/20/17 03/20/17 1 Day Ago History ~03/19/17 Dicyclomine [Bentyl] 10 mg PO 4XDAY #20 cap 07/06/17 Unknown Rx Levofloxacin [Levaquin] 750 mg PO DAILY 10 Days #10 tab 04/26/18 Unknown Rx - History of Present Illness -Gen Adult Nature of Presenting Problems: 62 yof presents to ed w/co nasal congestion, productive cough for 1 month. on 3 rounds prednisone and antibiotics. was sent by pcp to er. pt started new antibiotics monday. She states she began having chills and fever yesterday. She is non-toxic in appearance. Review of Systems - Adult - REVIEW OF SYSTEMS - ADULT Constitutional: reports: no symptoms reported Eyes: reports: no symptoms reported Ears, Nose, Mouth & Throat: reports: nose pain (congestion). denies: ear pain, hoarseness, throat pain Cardiovascular: reports: no symptoms reported Respiratory: reports: cough (green phelgm), excessive sputum production. denies : dyspnea on exertion, hemoptysis, shortness of breath Gastrointestinal: reports: no symptoms reported Genitourinary: reports: no symptoms reported Musculoskeletal: reports: no symptoms reported Integumentary: reports: no symptoms reported Neurological: reports: no symptoms reported Psychiatric: reports: no symptoms reported Endocrine: reports: no symptoms reported Hematologic/Lymphatic: reports: no symptoms reported Allergic/Immunologic: reports: no symptoms reported All Other Systems: Reviewed and Negative Past History - Adult - PAST MEDICAL HISTORY-ADULT Review of Records: reports: Old Records Reviewed, Nursing Assessment Review, Medications Reviewed, Social history reviewed & non-contributory. Major Childhood Illnesses: reports: history unknown Cardiovascular: reports: denies history Respiratory: reports: denies history Gastrointestinal: reports: diverticulosis, other (liver failure ( history of )) Obstetrical/Gynecological: reports: denies history Genitourinary: reports: denies history Musculoskeletal: reports: denies history Neurological: reports: denies history Endocrine/Immune: reports: denies history Other Conditions: reports: denies history - PRIOR SURGERIES/PROCEDURES Surgical/Procedure History: reports: colonoscopy, hysterectomy, tonsillectomy, other (colon resection, breast implants, shoulder and thumb) - IMMUNIZATION STATUS Childhood Immunizations: See Nurse Assessment Flu Vaccine: See Nurse Assessment - FAMILY HISTORY Family History: reviewed, not pertinent - SOCIAL HISTORY Smoking: non-smoker Substance Use: alcohol Alcohol Use Frequency: occasionally Physical Exam-General - PHYSICAL EXAM-ADULT Initial Vital Signs Reviewed: Yes - CONSTITUTIONAL General Appearance: alert, no apparent distress. negative: lethargic, slow to respond - EYES Eyes: PERRL/EOMI, pink conjunctivae. negative: sclera injected, scleral icterus , sunken eyes - HEAD, EARS, NOSE, MOUTH & THROAT HENMT: normocephalic/atraumatic, moist mucous membranes, normal ENT inspection, TMs normal, pharynx normal - NECK Neck: non-tender, full range of motion, supple, normal inspection. negative: lymphadenopathy - RESPIRATORY Respiratory: chest non-tender, lungs clear, normal breath sounds, no respiratory distress, no accessory muscle use, other (cough on exam). negative : crackles, rales, wheezing - CARDIOVASCULAR Cardiovascular: normal peripheral pulses, regular rate, rhythm, no edema, no gallop, no murmur - GASTROINTESTINAL (ABDOMEN) Abdominal Exam: normal bowel sounds, non tender, soft, no organomegaly, no pulsatile mass - LYMPHATIC Lymphatic: no adenopathy - MUSCULOSKELETAL Back Exam: normal inspection, no CVA tenderness Extremity: normal range of motion, non-tender, normal gait, normal inspection - SKIN Integumentary: normal color, normal turgor, warm/dry. negative: cyanosis, diaphoresis, jaundice, mottled, pallor - NEUROLOGIC Neurologic: grossly normal, no motor/sensory deficits - PSYCHIATRIC Psych/Mental Status: normal mood/affect, normal thought content, normal thought process, oriented x 3 Progress - PLAN OF CARE/RESULTS Progress/Plan/Lab Results: Vital Signs - 8 hr 04/26/18 09:29 Temperature 98.2 F Pulse Rate 109 H Respiratory Rate 18 Blood Pressure 125/63 O2 Sat by Pulse Oximetry 99 Orders Category Date Time Status CHEST-2 VIEWS [RAD] Stat Exams 04/26/18 09:46 Ordered CBC WITH DIFF [HEME] Stat Lab 04/26/18 09:46 Ordered COMPREHENSIVE METABOLIC PANEL [CHEM] Stat Lab 04/26/18 09:46 Uncollected Flu Swab [INFLUENZA SCREEN A/B] Stat Lab 04/26/18 09:32 Received UA NIMS W/REFLEX CULT [URINALYSIS] Stat Lab 04/26/18 09:46 Uncollected Albuterol 2.5MG/Ipratrop 0.5MG [Duoneb (A & A)] Med 04/26/18 09:47 Discontinued 3 ml INH NOW ONE Aerosol Treatments Routine Oth 04/26/18 09:47 Active Aerosol Treatments Stat Oth 04/26/18 09:[address] Miller's office and spoke with his nurse Cooper at 1140 who states that he is out of the office on lunch. [place] states Dr. Miller started pt on Z-Pack on Monday. Discussed case with Dr. Whiting who recommends that I offer admission to pt. Offered admission due to failed outpatient treatment and development of pneumonia despite treatment with antibiotics. Pt wants to stay in the hospital- hospitalist paged at 1145, awaiting return call at this time. Spoke with FLORENCIO Iglesias NOVELTY PRINTING MACHINE OPERATOR at 1205, NOVELTY PRINTING MACHINE OPERATOR accepts admission and asks that I order dose of IV Zosyn to be given now after blood cultures drawn. Pt in agreement with admission plan. Result Diagrams: 04/26/18 10:40 04/26/18 10:40 - XRAY 1 XRAY Study: Chest ([facility] [address], [address], [place] [address] Department of Imaging Patient: ROGERS [facility] Date: 04/26MR#: [id number] : 8ADM Status: REG ERAt#: [id number] Age/Sex : 62/FRoom/Bed: Loc: ED Ordering Physician: Viji Cee Family Physician: Primo Miller MD Reason for Procedure: productive cough, reported fever Signed EXAM: CHEST-2 VIEWS 04/26/2018 HISTORY: productive cough, reported fever TECHNIQUE: PA and lateral chest COMMENT: There is platelike atelectasis in the right base which is worse than on 2018. IMPRESSION: Atelectasis versus pneumonia right lower lobe. Electronically signed by Klever Barton 04/26/2018 10:27 AM 04/26/18 1027 Interpreting Physician: Klever Barton MD Dictated Date/Time: 1027 cc: Viji Cee; Primo Miller MD) Departure - Departure Date of Disposition Decision: 04/26/18 Time of Disposition Decision: 11:45 DIAGNOSIS: Influenza A Pneumonia Qualifiers: Pneumonia type: due to unspecified organism Laterality: right Lung location: lower lobe of lung Qualified Code(s): J18.1 - Lobar pneumonia, unspecified organism Disposition: ADMITTED INPATIENT 09 Certified Medical Emergency: Emergent Condition: Stable Additional Freetext Instructions: ED Follow Up Instructions: Increase fluids/rest. Take all antibiotics. Follow up with Dr. Miller tomorrow. Cool mist vaporizer in bedroom. You have been treated by a care provider in the Emergency Department. These instructions are being provided to you so you can have an understanding of how to care for yourself upon discharge. Upon discharge from the Emergency Department, you are responsible for making arrangements for follow-up care by a physician of your choice. Take all prescribed medications as directed. Return to the Emergency Department immediately for any new or worsening symptoms. You may call the Physician Referral phone number at [phone] to obtain a list of Physicians who are taking new patients. Prescriptions: Levofloxacin [Levaquin] 750 mg PO DAILY 10 Days #10 tab Referrals and Follow-Ups: Primo Miller MD [Primary Care Provider] - Work Excuses: Return to School/Parent Work Discharge Education: Influenza, Adult, [id number], Community-Acquired Pneumonia, Adult, [id number] - Critical Care Note This patient required my direct & personal management of CC.: No Attestation - Physician/ ADELE Attestation Patient care was provided by Advanced Practice Provider:: Yes Advanced Practice Provider:: Viji Cee Advanced Practice Provider documentation review:: The Mid-level provider documentation, treatment plan and medical decision making was reviewed by the physician who agrees with all treatment and medical decision making by the MLP. The physician spent face to face time with patient:: No Advanced Practice Provider documentation review:: Supervising physician onsite and consulted in the evaluation and care of this patient. The physician did not have a face to face encounter with the patient. This chart was documented by the indicated scribe, (Karolina Duggan Scribe) and accurately reflects the services I performed and decisions made by me, Viji Cee CRNP, as attested by the provider's signature.
[2018-04-26] MEDS ORDERED: TYLENOL PO PRN (14:21)
--- NOTE | 2018-04-26 15:07 | HISTORY AND PHYSICAL ---
PRIMARY CARE PROVIDER: Dr. Miller. CHIEF COMPLAINT: Shortness of breath and fever. HISTORY OF PRESENT ILLNESS: Ms. Carmen Castillo is a 62-year-old female with a medical history of diverticulitis, depression, and hypertension who states that over the last month she has been treated 3 different times for bronchitis with prednisone and azithromycin and Levaquin. She continues to have shortness of breath but yesterday evening she developed a fever of 102 with increasing shortness of breath, frequent coughing, and green phlegm along with headache and dizziness. Evaluation reveals that she has influenza type A. She has been started on Tamiflu. Her chest x-ray reveals that she actually has a right lower lobe pneumonia, so that is failed outpatient therapy. Will admit to medical floor to a private room PAST MEDICAL HISTORY: 1. Diverticulitis with rupture history. 2. Depression. 3. Hypertension. SURGICAL HISTORY: 1. Diverticular rupture and repair. 2. Gastric bypass in 2004 3. Cholecystectomy. 4. Left rotator cuff repair. 5. Left thumb surgery. SOCIAL HISTORY: Denies tobacco or ever using tobacco products. She drinks about 1 glass of red wine per week. Denies any illicit drug use. FAMILY HISTORY: Mother had diabetes and congestive heart failure. Father had COPD and brain cancer. ALLERGIES: No known drug allergies. HOME MEDICATIONS: Have not been verified by nursing reconciliation. She states she is on something for blood pressure and for depression. REVIEW OF SYSTEMS: Fourteen-point review of systems are complete and all were negative except for those mentioned above in HPI. Positive for shortness of breath, productive cough with green phlegm, 102 fever, headache and dizziness. PHYSICAL EXAMINATION: VITAL SIGNS: Temperature 99.0, heart rate 96, respiratory rate 18, blood pressure 155/68, O2 saturation 100% on room air, 5 feet 4 inches tall, 140 pounds with a BMI of 24. GENERAL: Ms. Carmen Castillo is a 62-year-old female. She is in no acute distress. She is able to answer questions appropriately. HEENT: Atraumatic, normocephalic. Pupils equal, round, reactive to light. Extraocular movements intact. Mucous membranes are dry. Throat is red. NECK: Trachea midline. CARDIOVASCULAR: S1, S2, regular rate and rhythm, no rubs, gallops, or murmurs. No lower extremity edema, +2 dorsalis and radial pulses. Negative JVD or carotid bruits. PULMONARY: Clear to auscultate bilateral breath sounds. No accessory muscle use or work of breathing noted. She is decreased in the right lower lobe posteriorly, tolerating room air. GI: Soft, nontender, nondistended, positive bowel sounds x4. EXTREMITIES: Moves all extremities equally, full range of motion. NEUROLOGICAL: A and O. Follows commands. Sensory is intact. SKIN: Warm, dry, and intact. LABORATORY DATA: White blood cells 6000, hemoglobin 12, hematocrit 37, platelet count 322. Potassium 3.3, sodium 136, BUN 9, creatinine 0.7, glucose 132, calcium 8.7. Bilirubin is less than 0.15. AST 19, ALT 10. Albumin 4.2. Urinalysis negative. IMAGING: Chest x-ray: Atelectasis versus pneumonia of the right lower lobe. ASSESSMENT AND PLAN: 1. Failed outpatient treatment of bronchitis and right lower lobe pneumonia. Will start her on Zosyn here, turn, cough, deep breathe respiratory treatments. 2. Influenza A positive. Tamiflu started today. Symptoms started yesterday evening. She will have a private room, face mask protection. 3. Depression. Will start her antidepressant once it is verified. 4. Hypertension. Continue antihypertensives once verified. 5. DVT prophylaxis, Lovenox. Dictated by MAT Oliver for Alfredo Spencer MD cc: MAT Oliver MD Patient presenting with Failed outpatient treatment of bronchitis and right lower lobe pneumonia and influenza A positive. I Agree with the assessment and plan of the MAT. Dr. Spencer. [facility]
[2018-04-26] MEDS: DUONEB (A & A) INH SCH ×3 (15:37→23:40)
[2018-04-26] MEDS: NS 1,000 ML IV SCH (16:03)
--- NOTE | 2018-04-26 16:32 | EKG Report ---
Test Performed on : 04/26/2018 10:57:53 AM Test Reason : ED. NO order in [place] Blood Pressure : / mmHG Vent. Rate : 094 BPM Atrial Rate : 094 BPM P-R Int : 130 ms QRS Dur : 090 ms QT Int : 368 ms P-R-T Axes : 067 055 066 degrees QTc Int : 460 ms Normal sinus rhythm. Nonspecific ST and T wave abnormality Prolonged QT Abnormal ECG No previous ECGs available Unconfirmed Result
[2018-04-26] MEDS: NORCO-10 PO PRN (18:22)
[2018-04-26] MEDS: ZOSYN 3.375 GM in NS 50 ML IV SCH (18:23)
[2018-04-26] MEDS: MUCOMYST 20% INH SCH (20:30)
[2018-04-26] MEDS: TAMIFLU PO SCH (21:54)
[2018-04-27] MEDS: NORCO-10 PO PRN ×3 (00:15→13:37)
[2018-04-27] MEDS: ZOSYN 3.375 GM in NS 50 ML IV SCH ×5 (00:25→23:32)
[2018-04-27] MEDS: DUONEB (A & A) INH SCH ×6 (03:50→23:30)
[2018-04-27] MEDS: NS 1,000 ML IV SCH ×3 (06:08→21:48)
[2018-04-27] MEDS: MUCOMYST 20% INH SCH ×2 (07:21→20:20)
[2018-04-27 08:09] LABS: BASO# 0.03 X1000 (0.0-0.2); BASO% 0.7 % (0.0-0.8); EOS# 0.09 X1000 (0.0-0.7); EOS% 2.1 % (0.0-10.0); HEMATOCRIT 36.5 % (37.0-47.0); HEMOGLOBIN 11.4 g/dL (12.0-16.0); LYMPH# 1.45 X1000 (1.2-3.4); LYMPH% 33.6 % (20.5-51.1); MCH 27.3 PG (27-31); MCHC 31.2 g/dL (33-37); MCV 87.3 FL (81-99); MONO# 0.57 X1000 (0.11-0.59); MONO% 13.2 % (1.7-9.3); MPV 9.8 FL (7.4-10.4); NEUT# 2.18 X1000 (1.4-6.5); NEUT% 50.4 % (42.2-75.2); PLT 214 X1000 (130-400); RBC 4.18 XMIL (4.2-5.4); RDW 14.9 % (11.5-14.5); WBC 4.32 X1000 (4.8-10.8)
--- NOTE | 2018-04-27 08:24 | Diag Imaging Result Doc PS360 ---
EXAM: CHEST-2 VIEWS - 04/27/2018 HISTORY: Pneumonia TECHNIQUE: Chest two views COMPARISON: 04/26/2018 FINDINGS: Heart size is normal. There is subsegmental atelectasis at the bilateral lung bases which is increased mildly. There has been development of small left pleural effusion. There is no discrete consolidation or pneumothorax identified. There is thoracic spondylosis noted. IMPRESSION: Subsegmental atelectasis at bilateral lung bases. Small left pleural effusion. Electronically signed by Adolfo Rockwell 04/27/2018 8:22 AM
[2018-04-27 08:44] LABS: AGAP 13; ALB/GLOB RATIO 1.7; ALBUMIN 3.8 g/dL (3.5-5.0); ALKALINE PHOSPHATASE 48 U/L (32-104); BUN 8 mg/dL (8-22); CALCIUM 8.3 mg/dL (8.8-10.2); CHLORIDE 105 mmol/L (98-107); COSMO 285; CREATININE 0.6 mg/dL (0.5-0.9); ESTIMATED GFR > 60; GLUCOSE 104 mg/dL (70-104); GOT 22 U/L (10-30); GPT 12 U/L (10-36); POTASSIUM 3.4 mmol/L (3.5-5.1); SODIUM 144 mmol/L (136-145); TCO2 26 mmol/L (25-35); TOTAL BILIRUBIN < 0.15 mg/dL (0.20-1.00); TOTAL PROTEIN 6.1 g/dL (6.3-8.3)
[2018-04-27] MEDS: TAMIFLU PO SCH ×2 (08:47→21:38)
[2018-04-27] MEDS: LOVENOX SUBQ SCH (08:47)
[2018-04-27] MEDS: POTASSIUM CHLORIDE 20 MEQ/SWI 20 MEQ/100 ML IVPB IV SCH ×2 (15:46→17:51)
--- NOTE | 2018-04-27 15:46 | PROGRESS NOTE ---
DATE: 04/27/2018 SUBJECTIVE: Patient resting in bed. No obvious signs of distress. OBJECTIVE: Vital signs: Temperature 97.4 degrees, pulse 74, respiratory rate 16, blood pressure is 105/63, HEENT: Atraumatic, normocephalic. Cardiovascular: S1,S2. Respiratory system: Has evidence of good air entry bilaterally. Abdomen: Soft , nontender. No masses felt. Extremities: No evidence of edema. Central nervous system: No obvious focal deficits noted. LABORATORY DATA: WBC is 4.2 hematocrit is 36.5 with a platelet count of 214, 000. Sodium is 144, potassium 3.4, chloride 105, bicarb 26, BUN is 8, creatinine 0.6. IMAGING: X-ray chest shows evidence of subsegmental atelectasis at bilateral lung bases. ASSESSMENT AND PLAN: 1. Probable pneumonia. Continue antibiotics. Follow up on sputum as well as blood cultures. 2. Influenza virus infection. Continue Tamiflu. 3. Depression. Continue current regimen. 4. Hypertension. Continue current regimen. 5. Deep vein thrombosis prophylaxis. Lovenox. cc: Alfredo Spencer MD [facility]
[2018-04-27] MEDS ORDERED: KLOR-CON PO ONE (17:52)
[2018-04-27] MEDS: ESTRACE PO SCH (21:37)
[2018-04-27] MEDS: PROTONIX PO SCH (21:37)
[2018-04-27] MEDS: CYMBALTA PO SCH (21:38)
[2018-04-27] MEDS: DESYREL PO SCH (21:38)
[2018-04-28] MEDS: DUONEB (A & A) INH SCH ×6 (03:51→23:06)
[2018-04-28] MEDS: ZOSYN 3.375 GM in NS 50 ML IV SCH ×3 (05:50→17:10)
[2018-04-28] MEDS: MUCOMYST 20% INH SCH ×2 (07:36→20:00)
[2018-04-28] MEDS: LOVENOX SUBQ SCH (10:08)
[2018-04-28] MEDS: TAMIFLU PO SCH ×2 (10:08→20:15)
[2018-04-28] MEDS: COZAAR PO SCH (10:08)
[2018-04-28] MEDS: NS 1,000 ML IV SCH ×2 (10:09→20:16)
[2018-04-28] MEDS: NORCO-10 PO PRN (12:25)
--- NOTE | 2018-04-28 18:44 | PROGRESS NOTE ---
DATE: 05/02/2018 SUBJECTIVE: This morning Ms. Castillo refers to be feeling a little bit better, but she complains of generalized weakness and some residual cough. OBJECTIVE: Vital signs: Blood pressure is 113/67, pulse is 83, respiration is 19, temperature is 97.6. General: Ms. Castillo is a 62-year-old female. She is in bed. She is not in any cardiopulmonary distress. Mucosa is pink and moist. Anicteric. Acyanotic. Neck: Supple. Chest: Air entry is bilaterally reduced. There are still a few distant end expiratory wheezes. No crackles. Cardiovascular: Regular rate and rhythm. There are no murmurs, no rubs, no gallops. Abdomen: Soft, nontender. Bowel sounds present. Extremities: No pedal edema. Distal pulses are present. MIDDLE SCHOOL COUNSELOR: Patient is awake, alert, oriented. There is no focal neurological deficit. LABORATORY DATA: None for today. CURRENT MEDICATIONS: Have all been reviewed. ASSESSMENT: 1. Influenza virus infection. Patient is currently on Tamiflu. Today is day 2 for a total of 5 days of therapy. 2. Suspected superimposed bacterial pneumonia. Patient is on IV antibiotics. 3. Hypertension, controlled. 4. History of situational anxiety and depression disorder. The patient is on Cymbalta and trazodone. Will continue with her medications. PLAN: In general, I think Ms. Castillo is doing fairly okay. Still has some residual respiratory symptoms. We will continue with incentive spirometer. Will encourage the patient to get up from bed and walk around and sit up more in the chair. We will reevaluate her labs tomorrow morning. If everything seems to be okay, I think he she will be a candidate for discharge tomorrow. cc: Ron Mathis MD
[2018-04-28] MEDS: CYMBALTA PO SCH (20:15)
[2018-04-28] MEDS: ESTRACE PO SCH (20:15)
[2018-04-28] MEDS: PROTONIX PO SCH (20:15)
[2018-04-28] MEDS: DESYREL PO SCH (20:16)
[2018-04-29] MEDS: ZOSYN 3.375 GM in NS 50 ML IV SCH ×5 (00:11→23:30)
[2018-04-29] MEDS: DUONEB (A & A) INH SCH ×6 (03:45→23:00)
[2018-04-29] MEDS: MUCOMYST 20% INH SCH ×2 (07:20→19:50)
[2018-04-29 08:09] LABS: BASO# 0.02 X1000 (0.0-0.2); BASO% 0.4 % (0.0-0.8); EOS# 0.27 X1000 (0.0-0.7); EOS% 5.4 % (0.0-10.0); HEMATOCRIT 35.3 % (37.0-47.0); HEMOGLOBIN 11.3 g/dL (12.0-16.0); LYMPH# 1.68 X1000 (1.2-3.4); LYMPH% 33.7 % (20.5-51.1); MCH 27.8 PG (27-31); MCV 86.9 FL (81-99); NEUT# 2.52 X1000 (1.4-6.5); NEUT% 50.5 % (42.2-75.2); PLT 249 X1000 (130-400); RBC 4.06 XMIL (4.2-5.4); RDW 14.7 % (11.5-14.5); WBC 4.99 X1000 (4.8-10.8)
[2018-04-29] MEDS: LOVENOX SUBQ SCH (08:24)
[2018-04-29] MEDS: NS 1,000 ML IV SCH ×3 (08:24→23:29)
[2018-04-29] MEDS: TAMIFLU PO SCH ×2 (08:24→21:22)
[2018-04-29] MEDS: COZAAR PO SCH (08:24)
[2018-04-29 08:32] LABS: AGAP 8; ALB/GLOB RATIO 1.4; ALBUMIN 3.4 g/dL (3.5-5.0); ALKALINE PHOSPHATASE 48 U/L (32-104); BUN 9 mg/dL (8-22); CALCIUM 8.3 mg/dL (8.8-10.2); CHLORIDE 102 mmol/L (98-107); COSMO 270; CREATININE 0.7 mg/dL (0.5-0.9); ESTIMATED GFR > 60; GLUCOSE 94 mg/dL (70-104); GOT 22 U/L (10-30); GPT 12 U/L (10-36); POTASSIUM 4.6 mmol/L (3.5-5.1); SODIUM 136 mmol/L (136-145); TCO2 26 mmol/L (25-35); TOTAL BILIRUBIN 0.15 mg/dL (0.20-1.00); TOTAL PROTEIN 5.8 g/dL (6.3-8.3)
--- NOTE | 2018-04-29 15:04 | PROGRESS NOTE ---
DATE: 04/29/2018 SUBJECTIVE: Patient awake. Not in any obvious distress. OBJECTIVE: Vital signs: Temperature 97.7 degrees, pulse 81, respiratory rate 19, blood pressure 126/76, oxygen saturation 99%. HEENT: Atraumatic, normocephalic. Cardiovascular: S1, S2. Respiratory: Has evidence of good air entry bilaterally. central nervous system: No obvious focal deficit noted. LABS: WBC is 4.9, hematocrit 35.3 with a platelet count of 249,000, sodium 146, potassium 4.6, chloride is 102, bicarb 26, BUN is 79, creatinine 0.7. ASSESSMENT AND PLAN: 1. Influenza virus infection. Continue on Tamiflu. 2. Probable pneumonia. Continue antibiotics. 3. Depression. Continue current regimen. 4. Hypertension. Continue current regimen. 5. Deep vein thrombosis prophylaxis. Lovenox. cc: Alfredo Spencer MD
[2018-04-29] MEDS: ESTRACE PO SCH (21:17)
[2018-04-29] MEDS: PROTONIX PO SCH (21:17)
[2018-04-29] MEDS: CYMBALTA PO SCH (21:17)
[2018-04-29] MEDS: DESYREL PO SCH (21:17)
[2018-04-30] MEDS: DUONEB (A & A) INH SCH ×4 (03:00→16:11)
[2018-04-30] MEDS: ZOSYN 3.375 GM in NS 50 ML IV SCH ×2 (05:22→12:07)
[2018-04-30 07:30] LABS: BASO# 0.03 X1000 (0.0-0.2); BASO% 0.5 % (0.0-0.8); EOS# 0.23 X1000 (0.0-0.7); EOS% 3.8 % (0.0-10.0); HEMOGLOBIN 11.6 g/dL (12.0-16.0); LYMPH# 1.86 X1000 (1.2-3.4); LYMPH% 30.7 % (20.5-51.1); MCH 27.4 PG (27-31); MCHC 31.4 g/dL (33-37); MCV 87.3 FL (81-99); MONO# 0.44 X1000 (0.11-0.59); MONO% 7.3 % (1.7-9.3); MPV 9.6 FL (7.4-10.4); NEUT% 57.7 % (42.2-75.2); PLT 240 X1000 (130-400); RBC 4.24 XMIL (4.2-5.4); RDW 14.6 % (11.5-14.5); WBC 6.06 X1000 (4.8-10.8)
--- NOTE | 2018-04-30 07:47 | Diag Imaging Result Doc PS360 ---
EXAM: CHEST-1 VIEW INDICATION: pneumonia TECHNIQUE: One view COMPARISON: 04/27/2018 FINDINGS: There has been improvement of the subsegmental atelectasis at the lung bases, which has essentially resolved. No new consolidation is identified. Cardiac silhouette is stable. IMPRESSION: Improvement of bibasilar atelectasis. Stable chest, otherwise. Electronically signed by Boyd Duggan 04/30/2018 7:45 AM
[2018-04-30 07:52] LABS: AGAP 10; BUN 8 mg/dL (8-22); CALCIUM 8.6 mg/dL (8.8-10.2); CHLORIDE 105 mmol/L (98-107); COSMO 276; CREATININE 0.7 mg/dL (0.5-0.9); ESTIMATED GFR > 60; GLUCOSE 108 mg/dL (70-104); POTASSIUM 4.2 mmol/L (3.5-5.1); SODIUM 139 mmol/L (136-145); TCO2 24 mmol/L (25-35)
[2018-04-30] MEDS: TAMIFLU PO SCH ×2 (08:03→08:04)
[2018-04-30] MEDS: COZAAR PO SCH (08:03)
[2018-04-30] MEDS: LOVENOX SUBQ SCH (08:05)
[2018-04-30] MEDS: MUCOMYST 20% INH SCH (08:10)
[2018-04-30] MEDS: NS 1,000 ML IV SCH (13:05)
[2018-04-30 15:11] VITALS: BP 126/69
--- NOTE | 2018-05-01 04:08 | DISCHARGE SUMMARY ---
ADMISSION DATE: 04/26/2018 DISCHARGE DATE: 04/30/2018 PRINCIPAL DIAGNOSIS: Influenza virus infection. SECONDARY DIAGNOSES: 1. Possible pneumonia. 2. Depression. 3. Hypertension. 4. History of diverticulitis. DISCHARGE MEDICATIONS: Tamiflu 75 mg p.o. twice a day for the next 1 day, Tessalon Perles 100 mg p.o. 3 times a day, Levaquin 500 mg p.o. daily for 5 days, duloxetine 60 mg p.o. at bedtime, losartan 25 mg p.o. daily, pantoprazole 40 mg p.o. daily, estradiol 2 mg p.o. at bedtime, trazodone 150 mg at bedtime. HOSPITAL COURSE: Ms. Carmen Castillo is a 62-year-old female with a history of diverticulitis, depression, and hypertension who had been treated about 3 different times for an upper respiratory infection. When she presented to the hospital, she was short of breath and also she had a fever, temperature 102 degrees. She was found to have influenza A virus and was started on Tamiflu. X- ray of her chest did show atelectasis versus pneumonia in the right lower lobe. The patient was also placed on antibiotics. The patient seemed to have remained stable. PHYSICAL EXAMINATION: Vital Signs: During my evaluation today, her vital signs as follows, temperature 97.7 degrees, pulse 80, respirations are 19, blood pressure 126/69, oxygen saturation 100%. HEENT: Atraumatic, normocephalic. Cardiovascular System: S1 and S2. Respiratory System: Has evidence of good air entry bilaterally. Central Nervous System: No obvious focal deficits noted. LABS: WBCs 6.06, hematocrit 37, with a platelet count of 240,000. Sodium is 139, potassium 4.2, chloride is 105, bicarb 24, BUN is 8, creatinine 0.7. X-ray of her chest shows that there has been an improvement in the subsegmental atelectasis in the lung base which has essentially resolved. No new consolidation is identified. DISCHARGE INSTRUCTIONS: At this time, the patient can now be discharged home. She will complete antibiotics and also antiviral medication at home. She will need to follow up with her primary care physician in the next 1 to 2 weeks. cc: Alfredo Spencer MD
== END 2018-04-30 19:00 | disposition home or self-care (01) | DRG 195 ==
LOC: ED 09:18 → SUATTDRO 09:19 → 3N 09:19
PROVIDERS: ATTEND Internal Medicine
CPT/HCPCS: 71010; 71020; 71045; 71046; 80048; 80053; 81001; 85025; 87040; 87275; 87276; 87804; 93005; 94640; 94761; 96365; 99285; A9270; J1650; J2543; J3480; J7030